=== PATIENT | female | born 1970 | race Caucasian/White ===

== ENCOUNTER 2018-06-18 10:41 | Emergency (ER) | payer OTHER ==
[2018-06-18] MEDS ORDERED: NS 1,000 ML IV ONE (12:20)
[2018-06-18] MEDS ORDERED: LORazepam 1 MG TAB PO PRN (12:20)
[2018-06-18] MEDS ORDERED: LORazepam 2 MG/ML INJ IVP PRN (12:20)
[2018-06-18 12:42] LABS: PLATELET COUNT 177 10^3/uL (150-400)
--- NOTE | 2018-06-18 12:47 | EDPHY ---
General - History Smoking Status: Current some day smoker Time Seen by Provider: 06/18/18 11:45 Narrative: CLINICAL IMPRESSION: Acute alcohol intoxication ASSESSMENT/PLAN: Patient is a 39-year-old female with a significant history of PTSD, panic disorder, anxiety and alcohol abuse who presents to the emergency department with her mother and sister after a 5 day binge of drinking vodka complaining of shakiness and nausea. Patient is afebrile and not toxic appearing, she is in no acute distress on arrival. She was alert and oriented, denies any suicidal or homicidal ideation. Her neurological exam was grossly normal, mildly tremulous otherwise nonfocal. Her abdomen was soft and nontender, no evidence of a surgical abdomen. CBC revealed no evidence of leukocytosis or anemia. BMP grossly unremarkable without evidence of metabolic abnormality. Drug screen negative. negative. Blood alcohol 215. The patient was given IV fluids with improvement of her symptoms in the Ed. The patient has sobered appropriately and was able to tolerate orals. There were no findings to suggest DTs, Wernicke, encephalitis, significant withdrawal, toxidrome or metabolic abnormality. M1 was not indicated however patient was offered formal behavioral health evaluation secondary to underlying PTSD, increased stress and alcohol abuse. Formal evaluation is still pending at this time. The patient remained hemodynamically stable, did not require Ativan secondary to very low CIWA score. On repeat examination and prior to transfer of care she is well- appearing, much less tremulous. She denies any physical complaints and states she feels much better. Dr. Zamora will resume care of this patient. DIFFERENTIAL DX: Differential diagnosis includes but not limited to acute intoxication, alcohol abuse, alcohol withdrawal, other substance abuse or withdrawal, toxidrome, medication overdose, medication noncompliance, metabolic abnormality. ED COURSE: 1333: On repeat examination the patient is much less tremulous. She states she is feeling better. She wishes to await formal evaluation by mental health. She denies any physical complaints at this time. She was given 1 L of IV fluids, did not require any Ativan. 1420: Breathalyzer still at 140, will await under 100 for formal evaluation. 1440: Case discussed with Dr. Zamora who will resume care of this patient at this time. Still awaiting formal behavioral health evaluation. CHIEF COMPLAINT: Shaky, nausea HPI: Patient is a 39-year-old female with significant history of PTSD, panic disorder , anxiety and alcohol abuse who presents to the emergency department with her mother and sister after a 5 day binge of drinking vodka. Patient reports she has been under a significant amount of stress, she started binge drinking last Monday on vodka, reports drinking greater than a pt per day. Last drink was last evening. Patient reports today she is feeling very shaky and tremulous, low-grade nausea. She denies any headache, dizziness, chest pain or shortness of breath. She does have a history of constipation, no bowel movement in the last several days which is not unusual for her. She denies any abdominal pain. She denies any urinary symptoms to include dysuria, hematuria or frequency. She reports that she is feeling very anxious secondary to stress, she currently takes Zoloft only which she sometimes misses secondary to forgetting. She denies any auditory or visual hallucinations, she denies any suicidal or homicidal ideation. She denies any fever or other recent illness. PMH: PTSD, anxiety, depression Family History: Not contributory Social History: Alcohol abuse, occasional cigarette smoking. Denies any illicit drug use. REVIEW OF SYSTEMS: All other systems negative Constitutional: Shaky. No fever, no chills, appetite change. Eyes: No discharge, vision change ENT: No sore throat, congestion, ear pain. Cardiovascular: No chest pain, no palpitations. Respiratory: No cough, no shortness of breath. Gastrointestinal: Nausea. No abdominal pain, no vomiting, diarrhea. Genitourinary: No hematuria, dysuria, flank pain. Musculoskeletal: No back pain, joint swelling, joint pain, myalgias. Skin: No rashes, color change. Neurological: No headache, dizziness, weakness. PHYSICAL EXAM: General Appearance: Well-appearing, mildly tremulous however not toxic- appearing. HENT: Normocephalic, atraumatic. Bilateral external ears are normal. Bilateral tympanic membranes are normal with pearly alba reflex. Nares are clear, mucosa is pink. Oropharynx is clear however mildly dry, uvula is midline. There is no tonsillar enlargement or exudate. The dentition is normal. Eyes: PERRLA, no acute vision change, nystagmus, swelling, discharge, pain or photosensitivity. Conjunctiva pink, no pallor or injection Neck: Supple, nontender, no lymphadenopathy, no midline pain, FROM, no meningismus. Respiratory: There are no retractions, lungs are clear to auscultation. Cardiac: Regular rate and rhythm, no murmurs or gallops. Gastrointestinal: Abdomen is soft, nontender, bowel sounds normal, no masses/ hernia, no rigidity, guarding or focal peritoneal findings. Neurological: Alert and oriented x 3, CN 2-12 grossly intact, normal sensation and strength. Mild tremor baseline. Skin: Warm, dry, no rashes, no nodules on palpation. Musculoskeletal: Extremities are symmetrical, full range of motion, no tenderness, deformity, swelling, or erythema. Psychiatric: Mildly depressed affect, there is no agitation. MEDICAL DECISION MAKING: Patient was seen independently. Secondary supervising physician at time of evaluation was Dr. Zamora. Diagnosis: Alcohol abuse, withdrawal. Summary: See Assessment and Plan for summary of ED visit Clinical lab tests: ordered / reviewed. Independent visualization of images, tracing, or specimens: Not applicable. Decision to obtain medical records or history from someone other than the patient: Yes, mother and sister Review / Summarize previous medical records: Yes Discussed patient with another provider: Yes Patient Progress: Stable, dispo pending. (Laury Gary) Medical Decision Making: Care assumed from Dr. Zamora with disposition pending mental health evaluation. 1645: Patient had mental health evaluation and is not felt to require hospitalization, does not meet 72 hr mental health hold criteria. Discharge with outpatient resources. (Osman Camp) - Objective Vital Signs: Initial Vital Signs Temperature (C) 36.8 C 06/18/18 10:48 Heart Rate 77 06/18/18 10:48 Respiratory Rate 18 06/18/18 10:48 Blood Pressure 146/83 H 06/18/18 10:48 O2 Sat (%) 95 06/18/18 10:48 O2 Delivery Mode Room Air Allergies/Adverse Reactions: ciprofloxacin [From Cipro] Allergy (Verified 06/18/18 10:46) Penicillins Allergy (Verified 06/18/18 10:46) cyclines Allergy (Uncoded 06/18/18 10:46) Home Medications: Medication Instructions Recorded Abx For Uti 06/18/18 Zoloft 100mg (*) 06/18/18 Laboratory Results: Laboratory Results 06/18/18 12:26 06/18/18 12:26 06/18/18 06/18/18 06/18/18 12:26 12:26 12:26 WBC 4.30 10^3/uL 10^3/uL (3.80-9.50) RBC 3.98 10^6/uL L 10^6/uL (4.18-5.33) Hgb 13.8 g/dL g/dL (12.6-16.3) Hct 39.5 % % (38.0-47.0) MCV 99.2 fL fL (81.5-99.8) MCH 34.7 pg H pg (27.9-34.1) MCHC 34.9 g/dL g/dL (32.4-36.7) RDW 12.8 % % (11.5-15.2) Plt Count 177 10^3/uL 10^3/uL (150-400) MPV 9.2 fL fL (8.7-11.7) Neut % (Auto) 66.1 % % (39.3-74.2) Lymph % (Auto) 20.9 % % (15.0-45.0) [place] % (Auto) 10.5 % % (4.5-13.0) Eos % (Auto) 0.7 % % (0.6-7.6) Baso % (Auto) 1.6 % % (0.3-1.7) Nucleat RBC Rel Count 0.0 % % (0.0-0.2) Absolute Neuts (auto) 2.84 10^3/uL 10^3/uL (1.70-6.50) Absolute Lymphs (auto) 0.90 10^3/uL L 10^3/uL (1.00-3.00) Absolute Monos (auto) 0.45 10^3/uL 10^3/uL (0.30-0.80) Absolute Eos (auto) 0.03 10^3/uL 10^3/uL (0.03-0.40) Absolute Basos (auto) 0.07 10^3/uL 10^3/uL (0.02-0.10) Absolute Nucleated RBC 0.00 10^3/uL 10^3/uL (0-0.01) Immature Gran % 0.2 % % (0.0-1.1) Immature Gran # 0.01 10^3/uL 10^3/uL (0.00-0.10) Sodium 137 mEq/L mEq/L (135-145) Potassium 4.6 mEq/L mEq/L (3.5-5.2) Chloride 102 mEq/L mEq/L (97-110) Carbon Dioxide 19 mEq/l L mEq/l (22-31) Anion Gap 16 mEq/L H mEq/L (6-14) BUN 11 mg/dL mg/dL (7-23) Creatinine 0.6 mg/dL mg/dL (0.6-1.0) Estimated GFR > 60 Glucose 80 mg/dL mg/dL (70-100) Calcium 9.3 mg/dL mg/dL (8.5-10.4) Beta HCG, Qual NEGATIVE Urine Opiates Screen Urine Barbiturates Ur Phencyclidine Scrn Ur Amphetamine Screen U Benzodiazepines Scrn Urine Cocaine Screen U Marijuana (THC) Screen Ethyl Alcohol 215 mg/dL H mg/dL (0-10) 06/18/18 11:00 WBC RBC Hgb Hct MCV MCH MCHC RDW Plt Count MPV Neut % (Auto) Lymph % (Auto) [place] % (Auto) Eos % (Auto) Baso % (Auto) Nucleat RBC Rel Count Absolute Neuts (auto) Absolute Lymphs (auto) Absolute Monos (auto) Absolute Eos (auto) Absolute Basos (auto) Absolute Nucleated RBC Immature Gran % Immature Gran # Sodium Potassium Chloride Carbon Dioxide Anion Gap BUN Creatinine Estimated GFR Glucose Calcium Beta HCG, Qual Urine Opiates Screen NEGATIVE (NEGATIVE) Urine Barbiturates NEGATIVE (NEGATIVE) Ur Phencyclidine Scrn NEGATIVE (NEGATIVE) Ur Amphetamine Screen NEGATIVE (NEGATIVE) U Benzodiazepines Scrn NEGATIVE (NEGATIVE) Urine Cocaine Screen NEGATIVE (NEGATIVE) U Marijuana (THC) Screen NEGATIVE (NEGATIVE) Ethyl Alcohol Medications Given: Lorazepam (Ativan Injection) 0 mg IVP Q1H PRN; Protocol PRN Reason: Alcohol Withdrawal w/IV access Stop: 06/19/18 00:20 Last Admin: 06/18/18 16:33 Dose: 1 mg Discontinued Medications Sodium Chloride (Ns) 1,000 mls @ 0 mls/hr IV EDNOW ONE; Wide Open PRN Reason: Protocol Stop: 06/18/18 12:21 Last Admin: 06/18/18 12:37 Dose: 1,000 mls Departure - Departure Disposition: Home, Routine, Self-Care Clinical Impression: Alcohol abuse, Anxiety Condition: Good Instructions: Generalized Anxiety Disorder (ED), Abuse of Alcohol (ED) Additional Instructions: DISCHARGE INSTRUCTIONS FROM YOUR PROVIDER Thank you for visiting our emergency department today. Please keep in mind that discharge from the emergency department does not mean that there is nothing wrong - it simply means that we have not identified an emergency condition that requires further evaluation or treatment in the hospital. You should always plan to follow up with primary care for re-evaluation of your condition in the next 2-3 days. Please avoid heavy alcohol use, it is very dangerous to your health and safety. Please followup with alcohol cessation resources provided. Seek immediate medical attention for seizures, confusion, uncontrolled vomiting , vomiting blood or other serious concerns People present with illnesses and injuries in different ways, and it is always possible that we have missed something. Again, thank you for choosing our emergency department. We hope that you feel better. Referrals: NONE *PRIMARY CARE P,. [Primary Care Provider] - 1-2 days without fail (Please follow-up with Dr. Hayden in the next 1-2 days)
[2018-06-18 17:15] VITALS: BP 139/89
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
--- NOTE | 2018-06-18 21:27 | ASMTTCLDSP ---
TLC Discharge Disposition Disposition: Answers: Discharge If Answers: Yes DISCHARGED: Patient/family given suicide hotline info & [facility] brochure? Disposition Notes: Notes: Pt discharged. Discharge Concerns/Recommendations: Notes: In consultation with [facility] ED physician, Osman Camp MD, it was concurred that pt does not appear to meet 27-65 criteria requiring psychiatric hospitalization as pt does not appear to be an imminent risk of harm to self/others/gravely disabled due to a mental illness condition. Pt denied thoughts of self-harm or harm to others. Pt was given local hotline information and [facility] brochure After an Attempt and provided resources to local treatment facilities for medical withdrawal management, inpatient, and intensive outpatient treatment. Was patient given the Answers: Not applicable Inpatient Behavioral Health Prohibited Belongings List while in the ED? Date Signed: 06/18/2018 09:21 PM Electronically Signed By:Orly Conway
== END 2018-06-18 17:21 | disposition home or self-care (01) ==
DX: F10.129 Alcohol abuse with intoxication, unspecified (principal); E86.9 Volume depletion, unspecified; F43.10 Post-traumatic stress disorder, unspecified; F41.8 Other specified anxiety disorders; Y90.7 Blood alcohol level of 200-239 mg/100 ml; Z79.899 Other long term (current) drug therapy
CPT/HCPCS: 80305; 96374; G0480; J2060